=== PATIENT | male | born 1955 | race Two or more races ===

== ENCOUNTER 2023-02-16 08:20 | Outpatient (REF) | payer MEDICARE, SELFPAY ==
[2023-02-16 12:08] LABS: Creatinine Urine 239.97 mg/dL; Microalbum/Creatinine Ratio Ur 4.5 ug/mg cr (<30)
[2023-02-16 12:28] LABS: Vitamin B12 542 pg/mL (200-900)
[2023-02-16 12:38] LABS: Anion Gap 13 (12-20); Blood Urea Nitrogen 19 mg/dL (9-16); Calcium 8.6 mg/dL (8.4-10.2); Carbon Dioxide 28 mmol/L (22-29); Chloride 103 mmol/L (96-108); Cholesterol 116 mg/dL (<200); Estimated Glomerular Filt Rate > 60; Glucose Random 135 mg/dL (60-115); HDL Cholesterol 50 mg/dL (>40); LDL Cholesterol Calculated 47 mg/dL (<100); Potassium 4.1 mmol/L (3.3-5.1); Sodium 140 mmol/L (135-145); Triglycerides 96 mg/dL (<150)
== END 2023-02-16 08:21 | disposition home or self-care (01) ==
LOC: HO.HHCL 08:20
PROVIDERS: Visit Provider Nurse Practitioner Primary Care
DX: I15.2 Hypertension secondary to endocrine disorders (principal); E11.59 Type 2 diabetes mellitus with other circulatory complications
CPT/HCPCS: 36415; 80048; 80061; 82043; 82570; 82607

== ENCOUNTER 2023-05-03 14:08 | Outpatient (AMB) | payer MEDICARE, SELFPAY ==
--- NOTE | 2023-05-03 14:26 | MHC.OFFVIS ---
Intake Vital Signs 05/03/23 14:28 Height 5 ft 11 in Weight 168 lb 6.931 oz BMI 23.5 BP 112/62 Blood Pressure Location Rt brachial Position Sitting Pulse 91 Intake Visit Reasons: Colonoscopy Screening, pt Intake Note: Sterling presents in office today for colonoscopy screening. CC: Patient reports doing well. Last colonoscopy with DR. Curtis, patient does not recall when. Instructional Coach Required: Yes Instructional Coach Language: Bulgarian Accompanied by: Self / Same As Patient Allergies No Known Allergies Allergy (Unverified 11/02/19 18:15) HPI Colonoscopy Screening, pt HPI Details 67 year old? male with past medical history of hypertension, hyperlipidemia, diabetes is here today for pre colonoscopy screening.? Patient was sent to us by his PCP.? Patient had colonoscopy in 2019 with suboptimal prep. No polyps found, however previous colonoscopy showed tubular adenoma. Patient reports to have occasional postprandial loose stools.? Patient also reports postprandial epigastric pain with dyspepsia without dysphagia or odynophagia. Patient denies any melena, hematochezia, unintentional weight loss or ribbon like stools. Patient denies any issues with anesthesia in the past. Not on any anticoagulation medication. No family history of CRC PFSH Surgical History H/O colonoscopy Social History Alcohol intake: former Patient Tobacco Use Status: Never used Tobacco Review of Systems Const Denies weight gain and Denies weight loss ENT Reports no additional complaints, Denies dysphagia and Denies odynophagia Card Reports no additional complaints Resp Reports no additional complaints GI Denies abdominal pain, Denies belching, Denies melena, Denies bloating, Denies change in bowel habits, Denies dysphagia, Denies excessive flatus, Denies dyspepsia, Reports heartburn, Denies diarrhea, Reports loose stools, Denies nausea, Denies odynophagia and Denies vomiting Reports no additional complaints Musc Reports no additional complaints Neuro Reports no additional complaints Psych Reports no additional complaints Endo Reports no additional complaints Physical Exam Vital Signs: Last Vital Signs Pulse 91 05/03/23 14:28 BP 112/62 05/03/23 14:28 BMI result Body Mass Index 23.5 Const General: healthy appearing, no acute distress and well developed Nutritional Appearance: well nourished Orientation/consciousness: patient oriented x3 Resp Effort & Inspection: normal respiratory effort, able to speak in complete sentences, no tracheal deviation and symmetric chest movement Auscultation: clear to auscultation bilaterally Cardio Rate: regular rate GI Inspection: Yes normal to inspection and No distended Palpation (GI): Soft to palpation, not firm, nontender and No hepatosplenomegaly present Auscultation: normal bowel sounds General: Yes no CVA tenderness Back/Spine/Pelvis Back: no CVA tenderness Skin General skin exam: elasticity normal, turgor normal and dry skin Neuro General: patient oriented x3 Psych Appearance: grossly normal Mental Status: mental status grossly normal Assessment & Plan Assessment & Plan (1) Screen for colon cancer: Code(s): Z12.11 - Encounter for screening for malignant neoplasm of colon (2) Postprandial diarrhea: Code(s): K52.9 - Noninfective gastroenteritis and colitis, unspecified (3) GERD (gastroesophageal reflux disease): Code(s): K21.9 - Gastro-esophageal reflux disease without esophagitis Qualifiers: Esophagitis presence: esophagitis presence not specified Qualified Code(s): K21.9 - Gastro-esophageal reflux disease without esophagitis Plan Patient denies any cardiac or respiratory symptoms.? Denies any issues with anesthesia in the past.? Denies any history of sleep apnea.? No history infectious diseases in the past or present.? Patient is on low-dose aspirin. ? No family or personal history of colon cancer or polyps.? Patient denies melena, hematochezia, unintentional weight loss or ribbon like stools.? Patient reports occasional postprandial loose stools. Will check vitamin B12, folate, D levels. Patient reports also postprandial epigastric discomfort will check lipase, thyroid study. Patient can start taking omeprazole in the morning half an hour before breakfast. Discussed with him avoiding dietary triggers and late night snacking. Staying upright for minimum 3 hours after meals discussed with them. He will return 2 months before the procedure so we can discuss the prep. Patient can start taking fiber supplement to help him bulk his stools. If symptoms continue or patient develops any other GI concerning symptoms he is to call our office so we can see him sooner. Patient is this plan and verbalizes understanding of instructions. He was given the opportunity to ask questions and all questions answered. Thank you for allowing me to in his care Orders: Orders Vitamin B12 and Folate 05/06/23 R19.7 - Diarrhea, unspecified Vitamin D 25-OH (D2 and D3) 05/06/23 E55.9 - Vitamin D deficiency, unspecified Lipase 05/06/23 R10.9 - Unspecified abdominal pain TSH reflex Free T4 05/06/23 K59.00 - Constipation, unspecified Medications: New methylcellulose (laxative) (Citrucel) take it with full glass of water 500 mg PO DAILY 30 tabs 2RF K59.00 - Constipation, unspecified omeprazole 20 mg PO DAILY 30 caps 3RF K21.9 - Gastro-esophageal reflux disease without esophagitis Coding Level of Care Code New Pt Level 4 (93128) Diagnoses Screen for colon cancer Z12.11 Postprandial diarrhea K52.9 Gastroesophageal reflux disease, unspecified whether esophagitis present K21.9 Esophagitis presence: esophagitis presence not specified Time Spent (min) 45 Comment 30 minutes spent with patient and additional 15 minutes spent reviewing his records
[2023-05-03 14:28] VITALS: BP 112/62; PULSE 91; BMI 23.5
== END 2023-05-03 15:27 | disposition home or self-care (01) ==
PROVIDERS: PCP Registered Nurse; Visit Provider Nurse Practitioner Family
DX: K52.9 Noninfective gastroenteritis and colitis, unspecified (principal); K21.9 Gastro-esophageal reflux disease without esophagitis; Z12.11 Encounter for screening for malignant neoplasm of colon
CPT/HCPCS: 99204

== ENCOUNTER → 2023-05-03 14:08 | Outpatient (BNVA) | payer MEDICARE, SELFPAY | PROVIDERS: PCP Registered Nurse; Visit Provider Nurse Practitioner Family | DX: K52.9 Noninfective gastroenteritis and colitis, unspecified (principal); K21.9 Gastro-esophageal reflux disease without esophagitis | CPT/HCPCS: 99202 ==

== ENCOUNTER 2023-05-06 11:05 | Outpatient (REF) | payer OTHER, SELFPAY ==
[2023-05-06 12:41] LABS: Lipase 17 U/L (8-78)
[2023-05-06 13:04] LABS: Folate 13.6 ng/mL (> or = 4.0); Vitamin B12 674 pg/mL (200-900)
[2023-05-11 13:34] LABS: Vitamin D 25-OH, D2 <4 ng/mL; Vitamin D 25-OH, D3 42 ng/mL; Vitamin D 25-OH, Total 42 ng/mL (30-100)
== END 2023-05-06 11:06 | disposition home or self-care (01) ==
LOC: HO.LAB 11:05
PROVIDERS: PCP Nurse Practitioner Primary Care; Visit Provider Nurse Practitioner Family
DX: R10.9 Unspecified abdominal pain (principal); R19.7 Diarrhea, unspecified; E55.9 Vitamin D deficiency, unspecified; K59.00 Constipation, unspecified
CPT/HCPCS: 36415; 82306; 82607; 82746; 83690; 84443

== ENCOUNTER 2024-07-18 08:08 | Outpatient (REF) | payer OTHER, SELFPAY ==
--- OUTSIDE RECORDS SUMMARY | 2024-07-18 08:11 | XMS_ITS | Encounter Summary ---
Author Organization [facility] Address [address] [place] [address] Care Team Providers Care Target Aircraft Controller Name Role Phone April Guadalupe Primary Care Provider [phone] Encounter Details Date Type Department Care Team (Latest Contact Info) Description 07/17/2020 Abstract [facility] CONVERSIONS Dental, Provider, DDS Social History Tobacco Use Types Packs/Day Years Used Date Smoking Tobacco: Never Assessed Sex and Gender Information Value Date Recorded Sex Assigned at Male 12/15/2021 10:22 AM EDT Legal Sex Male 10:22 AM EDT Gender Identity Male 12/15/2021 10:22 AM EDT Sexual Orientation Straight 12/15/2021 10 :22 AM EDT documented as of this encounter Plan of Treatment Not on file documented as of this encounter Visit Diagnoses Not on filedocumented in this encounter Care Teams [employer] Aircraft Controller Relationship Specialty Start Date End Date April Guadalupe ANP [address] [place] [address] PCP - General Family Medicine 10/07/20 documented as of this encounter
[2024-07-18 12:10] LABS: Anion Gap 12 (12-20); Blood Urea Nitrogen 17 mg/dL (9-16); Calcium 8.7 mg/dL (8.4-10.2); Carbon Dioxide 29 mmol/L (22-29); Chloride 103 mmol/L (96-108); Cholesterol 118 mg/dL (<200); Estimated Glomerular Filt Rate > 60; Glucose Random 154 mg/dL (60-115); HDL Cholesterol 53 mg/dL (>40); LDL Cholesterol Calculated 54 mg/dL (<100); Potassium 3.8 mmol/L (3.3-5.1); Sodium 140 mmol/L (135-145); Triglycerides 56 mg/dL (<150)
[2024-07-18 12:27] LABS: Creatinine Urine 277.71 mg/dL; Microalbum/Creatinine Ratio Ur 4.3 ug/mg cr (<30)
== END 2024-07-18 08:09 | disposition home or self-care (01) ==
LOC: HO.HHCL 08:08
PROVIDERS: Visit Provider Nurse Practitioner Primary Care
DX: E11.69 Type 2 diabetes mellitus with other specified complication (principal); E78.5 Hyperlipidemia, unspecified
CPT/HCPCS: 36415; 80048; 80061; 82043; 82570